=== PATIENT | female | born 1950 | race Caucasian/White ===

== ENCOUNTER → 2016-06-22 | Outpatient (CLI) | payer OTHER ==
--- NOTE | 2016-06-23 07:42 | RADONC ---
RADIATION ONCOLOGY FOLLOWUP NOTE DATE: 06/22/2016 CHART NUMBER: [id number]. DIAGNOSIS: Left breast cancer. STAGE: IIIA, [id number] ECOG PERFORMANCE STATUS: Zero. FOLLOWUP NOTE: Ms. Concepcion is a truly delightful, 65-year-old white female with the diagnosis of a stage IIIA, [id number] moderately differentiated invasive lobular carcinoma of the left breast who is presenting to us today for routine followup visit 7 months post completion of external beam radiation therapy. The patient presents today reporting that she is doing quite well with no complaints at this time related to her radiation therapy disease. She has no chest wall or bone pain. REVIEW OF SYSTEMS: The patient's review of systems is noncontributory. Denies nausea, vomiting, fevers, chills, night sweats, diplopia, headaches, anxiety or depression, anorexia, weight loss, visual disturbances, chest pain, urinary or bowel difficulties, bone pain, or neurological problems. PHYSICAL EXAMINATION: The patient is a well-developed, well-nourished, 65-year-old female in no acute distress. HEENT exam is normocephalic, atraumatic. Extraocular movements are intact. There is no palpable cervical, supraclavicular, infraclavicular, axillary, or inguinal lymphadenopathy present. Lungs are clear to auscultation and percussion. Heart has a regular rate and rhythm. Abdomen is benign with no hepatosplenomegaly, masses, or tenderness. The patient's bilateral chest tavarez reveal no evidence of nodularity, ulceration or residual disease. Breast examination reveals no masses or discharge bilaterally. Skeletal examination reveals no tenderness to pressure or percussion of the bony skeleton. Extremities reveal no clubbing, cyanosis, or edema. Neurologic exam is grossly intact, as is the remainder of the physical examination. ASSESSMENT: The patient is clinically CHARLEY at this time and will be seen by us again in 6 months for further followup. She will also continue be followed by her other physicians as well. cc: *Dr. Marisabel Baldwin *Dr. Gordon *Dr. Monique Tello *Chely Gracia MD *Dhruv Malik MD
== END ==
LOC: M ONCR 14:59
PROVIDERS: ATTEND Radiology Radiation Oncology
DX: C50.112 Malignant neoplasm of central portion of left female breast (principal)

== ENCOUNTER → 2017-01-18 | Outpatient (CLI) | payer MEDICARE ==
--- NOTE | 2017-01-20 07:30 | RADONC ---
RADIATION ONCOLOGY FOLLOWUP NOTE DATE: 01/18/2017 CHART NUMBER: [id number] DIAGNOSIS: Left breast cancer. STAGE IIIA, [id number]. ECOG PERFORMANCE STATUS: 0 FOLLOWUP NOTE: Ms. Concepcion is a very pleasant 66-year-old white female with the diagnosis of a stage IIIA, [id number] moderately differentiated invasive lobular carcinoma of the left breast who is presenting to us today for routine followup visit 1 year and 2 months post completion of external beam radiation therapy. The patient presents today reporting that she is doing quite well with no complaints at this time related to her radiation therapy or disease. She has no chest wall or bone pain. The patient's review of systems is noncontributory. She denies nausea, vomiting, fevers, chills, night sweats, diplopia, headaches, anxiety or depression, anorexia, weight loss, visual disturbances, chest pain, urinary or bowel difficulties, bone pain, or neurological problems. PHYSICAL EXAMINATION: The patient is a well-developed, well-nourished female in no acute distress. HEENT exam is normocephalic, atraumatic. Extraocular movements are intact. There is no palpable cervical, supraclavicular, infraclavicular, axillary, or inguinal lymphadenopathy present. Lungs are clear to auscultation and percussion. Heart has a regular rate and rhythm. Abdomen is benign with no hepatosplenomegaly, masses, or tenderness. The patient's bilateral chest tavarez reveal no evidence of nodularity, ulceration or residual disease. Breast examination reveals no masses. Skeletal examination reveals no tenderness to pressure or percussion of the bony skeleton. Extremities reveal no clubbing, cyanosis, or edema. Neurologic exam is grossly intact, as is the remainder of the physical examination. ASSESSMENT: The patient is clinically CHARLEY at this time and will be seen by us again in 6 months for further followup. She will also continue to be followed by her other physicians as well. cc: MD Chely Bowers MD Padma Ram Anthony Scalzo, MD Prashant Upadhyaya, MD
== END ==
LOC: M ONCR 10:30
PROVIDERS: ATTEND Radiology Radiation Oncology
DX: C50.112 Malignant neoplasm of central portion of left female breast (principal)

== ENCOUNTER → 2017-07-19 | Outpatient (CLI) | payer MEDICARE | LOC: M ONCR 11:14 | DX: C50.112 Malignant neoplasm of central portion of left female breast (principal) | CPT/HCPCS: G0463 ==

== ENCOUNTER → 2018-01-17 | Outpatient (CLI) | payer MEDICARE | LOC: M ONCR 11:22 | DX: C50.912 Malignant neoplasm of unspecified site of left female breast (principal) | CPT/HCPCS: G0463 ==

== ENCOUNTER → 2018-07-25 | Outpatient (CLI) | payer MEDICARE ==
--- NOTE | 2018-07-29 13:50 | RADONC ---
RADIATION ONCOLOGY FOLLOWUP NOTE DATE: 07/25/2018 CHART #: [id number] DIAGNOSIS: Left breast cancer. STAGE: III A, [id number]. ECOG PERFORMANCE STATUS: 0. FOLLOWUP NOTE: Ms. Concepcion is a very pleasant 67-year-old white female with the diagnosis of a stage III A, [id number], moderately differentiated invasive lobular carcinoma of the left breast who is presenting to us today for routine followup visit 2 years and 8 months post completion of external beam radiation therapy. The patient presents today reporting that she is doing quite well with no complaints at this time related to her radiation therapy or disease. She has no chest wall or bone pain. REVIEW OF SYSTEMS: The patient's review of systems is noncontributory. Denies nausea, vomiting, fevers, chills, night sweats, diplopia, headaches, anxiety or depression, anorexia, weight loss, visual disturbances, chest pain, urinary or bowel difficulties, bone pain, or neurological problems. PHYSICAL EXAMINATION: The patient is a well-developed, well-nourished, 67-year-old female in no acute distress. HEENT exam is normocephalic, atraumatic. Extraocular movements are intact. There is no palpable cervical, supraclavicular, infraclavicular, axillary, or inguinal lymphadenopathy present. Lungs are clear to auscultation and percussion. Heart has a regular rate and rhythm. Abdomen is benign with no hepatosplenomegaly, masses, or tenderness. Breast examination reveals bilateral mastectomy scars with nipple sparing mastectomies present. There is no evidence of nodularity, ulceration or recurrent disease. Skeletal examination reveals no tenderness to pressure or percussion of the bony skeleton. Extremities reveal no clubbing, cyanosis, or edema. Neurologic exam is grossly intact, as is the remainder of the physical examination. ASSESSMENT: The patient is clinically doing well at this time. Since she is being followed and managed so closely by her other physicians, I have discharged her from my followup except on a p.r.n. basis. cc: MD Yung Bowers,
== END ==
LOC: M ONCR 11:34
PROVIDERS: ATTEND Radiology Radiation Oncology
DX: C50.112 Malignant neoplasm of central portion of left female breast (principal); Z92.3 Personal history of irradiation